=== PATIENT | female | born 1980 | race Two or more races ===

== ENCOUNTER 2023-11-04 12:21 | Emergency (ER) | payer OTHER ==
[2023-11-04 13:07] VITALS: BP 113/76; PULSE 87; RESP 18; TEMP 98.4; BMI 33.3
[2023-11-04 13:37] LABS: BASO % 0.7 % (0-2.0); EOS % 3.1 % (0-4.5); HEMATOCRIT 36.8 % (32.4-45.2); HEMOGLOBIN 12.1 GM/dL (10.7-15.3); LYMPH % 27.9 % (8-40); MCH 27.9 pg (25.7-33.7); MCHC 32.8 g/dl (32.0-36.0); MEAN CELL VOLUME 85.1 fl (80-96); MEAN PLT VOLUME 8.2 fl (7.5-11.1); MONO % 7.2 % (3.8-10.2); NEUT % 61.1 % (42.8-82.8); PLATELET COUNT 315 10^3/uL (134-434); RBC 4.33 M/mm3 (3.60-5.2); RDW 14.2 % (11.6-15.6); WHITE BLOOD COUNT 8.6 K/mm3 (4.0-10.0)
[2023-11-04 13:59] LABS: POTASSIUM 4.1 mmol/L (3.5-5.1)
[2023-11-04 14:01] LABS: BLOOD UREA NITROGEN 13.6 mg/dL (7-18); CALCIUM 8.8 mg/dL (8.5-10.1)
[2023-11-04] MEDS ORDERED: KETOROLAC TROMETHAMINE 15 MG/ML VIAL ONE (14:01)
[2023-11-04 14:02] LABS: ALBUMIN 3.4 g/dl (3.4-5.0)
[2023-11-04] MEDS: KETOROLAC TROMETHAMINE 15 MG/ML VIAL IVPUSH ONE (14:03)
[2023-11-04 14:05] LABS: CREATININE 0.6 mg/dL (0.55-1.3)
[2023-11-04 14:06] LABS: BILIRUBIN,TOTAL 0.2 mg/dL (0.2-1); TOT PROT 6.6 g/dl (6.4-8.2)
== END 2023-11-04 15:30 | disposition home or self-care (01) ==
LOC: JER 12:21
PROC: 3E0333Z Introduction of Anti-inflammatory into Peripheral Vein, Percutaneous Approach (ICD-10-PCS; principal; 2023-11-04)
DX: R22.0 Localized swelling, mass and lump, head (principal)
CPT/HCPCS: 36415; 70487-TC; 80053; 84703; 85025; 99285-25; Q9967